=== PATIENT | female | born 1965 | race Caucasian/White ===

== ENCOUNTER 2016-06-13 11:20 | Emergency (ER) | payer OTHER ==
[~2016-06-13] VITALS: Ht 175.3 cm; Wt 105.0 kg
[~2016-06-13 11:20] MED LIST: ALBU8I INH; CHOLESTEROL MED PO; EXEN2VIA SC; GLUCTAB PO; MEDR4PAK3 PO; OMEP20TA39 PO; ZITH250T PO
[2016-06-13 11:23] VITALS: BP 124/79; PULSE 71; RESP 12; TEMP 98.1; O2SAT 98
--- NOTE | 2016-06-13 12:32 | PD ---
HPI Chief Complaint: Pain: Acute or Chronic Time Seen by Provider: 12:32 Travel History International Travel<30 days: No Contact w/Intl Traveler<30days: No Traveled to known affect area: No History of Present Illness HPI 50-year-old female presents to emergency department with complaint of right upper back pain that radiates down her right arm for approximately 1 week after weight lifting. She was lifting 25 pounds and doing her normal workout when she developed the pain in her right upper back. She has tried icy hot, ibuprofen, heating pad with no relief of symptoms. Reports muscle spasms in her right upper back and right arm. Denies fever, chills, nausea, vomiting. Denies paresthesias, loss of sensation, decreased range of motion, decreased strength to the affected extremity. Denies chest pain, shortness of breath, abdominal pain. History of diabetes and is on metformin. No known allergies. No other modifying factors or associated signs and symptoms. PFSH Past Medical History COPD: Yes Diabetes: Yes Diminished Hearing: No GERD: Yes Respiratory: Yes (BRONCHITIS) Immunizations Current: Yes Pneumonia: Yes Triglycerides - High: Yes ?: Not Menopausal: Yes : 1 Para: 1 Tubal Ligation: Yes Past Surgical History Cholecystectomy: Yes Social History Alcohol Use: Yes (RARELY) Tobacco Use: No Substance Use: No Allergies-Medications (Allergen,Severity, Reaction): Coded Allergies: No Known Allergies (Verified , 09/03/14) Reported Meds & Prescriptions Reported Meds & Active Scripts Active Medrol Dosepak (Methylprednisolone) 4 Mg Guy 4 Mg PO DIRECTED TAKE DIRECTED Zithromax Z-Guy (Azithromycin) 250 Mg Tab 250 Mg PO DIRECTED 500 MG (2 TABLETS) PO ON DAY 1, THEN 250 MG (1 TABLET) PO ON DAYS 2 TO 5. Reported [Cholesterol Med] 10 Mg PO DAILY Ventolin Hfa (Albuterol Sulfate) 8 Gm Aero 2 Puff INH Q4 * SHAKE WELL BEFORE USE * Bydureon (Exenatide) Inj 1 Vial SC WEEKLY Hm Omeprazole (Omeprazole) 20 Mg Tab 40 Mg PO DAILY Metformin Hcl (Metformin HCl) 500 Mg Tab 500 Mg PO BIDPC Review of Systems Except as stated in HPI: all other systems reviewed are Neg Physical Exam Narrative GENERAL: Well-nourished, well-developed female patient, in no acute distress SKIN: Warm and dry. HEAD: Atraumatic. Normocephalic. EYES: Pupils equal and round. No scleral icterus. No injection or drainage. ENT: Mucosa pink and moist. Airway patent. NECK: Supple. Trachea midline. No midline point tenderness on palpation of the cervical spine. Active rotation of the neck greater than 45 left and the right. Patient moving freely. CARDIOVASCULAR: Regular rate. RESPIRATORY: No accessory muscle use. GASTROINTESTINAL: Obese. MUSCULOSKELETAL: Right shoulder with full range of motion; greater than 45 abduction; right shoulder with no obvious deformities; joint stable. Shoulders equal. 5/5 strength. Right upper extremity supple and non-tense. 2+ radial pulse and sensory intact without erythema or edema. No obvious deformities. No clubbing. No cyanosis. No edema. BACK: No point tenderness on palpation of the thoracic spine. Reproducible tenderness to the right trapezius muscle over the scapular area. NEUROLOGICAL: Awake and alert. Oriented 3. No obvious cranial nerve deficits. Motor grossly within normal limits. Normal speech. PSYCHIATRIC: Appropriate mood and affect; insight and judgment normal. Data Data Last Documented VS Vital Signs Date Time Temp Pulse Resp B/P Pulse Ox O2 Delivery O2 Flow Rate FiO2 06/13/16 11:23 98.1 71 12 124/79 98 Room Air Orders Ketorolac Inj (Toradol Inj) (06/13/16 12:45) Orphenadrine Inj (Norflex Inj) (06/13/16 12:45) MDM Medical Decision Making Medical Screen Exam Complete: Yes Emergency Medical Condition: Yes Medical Record Reviewed: Yes Differential Diagnosis Muscle strain, muscle spasm, cervical radiculopathy Narrative Course 50-year-old female physical exam consistent with a right trapezius muscle strain and muscle spasms. Norflex and Toradol administered in the ER. Flexeril and naproxen prescribed for home. Patient is medically cleared and stable for discharge. Discussed reasons to return to the emergency department. Instructed patient to follow up with primary care provider. Patient agrees with treatment plan. The patients vital signs are stable and the patient is stable for outpatient follow-up and treatment. Patient discharged home, stable and in no acute distress. Diagnosis Primary Impression: Strain of right trapezius muscle Qualified Code: S46.811A - Strain of right trapezius muscle, initial encounter Additional Impression: Trapezius muscle spasm Referrals: Primary Care Physician Patient Instructions: General Instructions, Muscle Spasm (ED), Muscle Strain ( ED) Departure Forms: Tests/Procedures, Work Release Enter return to work date: Jun 15, 2016 Additional Instructions: Tylenol or ibuprofen as directed and as needed for pain Flexeril as prescribed and as needed for muscle spasms Heating pad and/or ice to affected area to reduce pain Avoid aggravating activities; increase activity as tolerated Follow-up with primary care provider Return to emergency department immediately with worsening of symptoms Med/Other Pt SpecificInfo: Prescription(s) given Scripts Naproxen 500 Mg [id number] Mg PO BID PRN (PAIN SCALE 1 TO 10) 7 Days Ref 0 Prov:Tete Kim 06/13/16 Cyclobenzaprine (Flexeril)10 Mg Tab10 Mg PO TID PRN (MUSCLE SPASM) #30 TAB Ref 0 Prov:Tete Kim 06/13/16 Disposition: 01 DISCHARGE HOME Condition: Stable Tete Kim Jun 13, 2016 12:32
[2016-06-13] MEDS ORDERED: CYCL1TAB29 PO (12:43)
[2016-06-13] MEDS ORDERED: NAPR500T PO (12:43)
[2016-06-13] MEDS ORDERED: ORPHENADRINE INJ 60 MG/2 ML AMP IM ONE (12:45)
[2016-06-13] MEDS ORDERED: KETOROLAC TROMETHAMINE 60 MG/2 ML (IM) VIAL IM ONE (12:45)
== END 2016-06-13 12:59 | disposition home or self-care (01) ==
LOC: NEPB 11:20
DX: S46.811A Strain of other muscles, fascia and tendons at shoulder and upper arm level, right arm, initial encounter (principal); M62.838 Other muscle spasm; M62.830 Muscle spasm of back; E11.9 Type 2 diabetes mellitus without complications; E78.1 Pure hyperglyceridemia; Z79.84 Long term (current) use of oral hypoglycemic drugs; Z87.09 Personal history of other diseases of the respiratory system; Z87.19 Personal history of other diseases of the digestive system; Z87.01 Personal history of pneumonia (recurrent)
CPT/HCPCS: 96372; 99283; J1885; J2360

== ENCOUNTER 2016-09-07 06:59 | Emergency (ER) | payer OTHER ==
[~2016-09-07] VITALS: Ht 177.8 cm; Wt 102.0 kg
[~2016-09-07 06:59] MED LIST changes: +CYCL1TAB29 PO; +NAPR500T PO
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
[2016-09-07 07:11] VITALS: BP 143/78; PULSE 74; RESP 16; TEMP 98.2; O2SAT 99
[2016-09-07] MEDS ORDERED: CYCL5TAB PO (07:13)
[2016-09-07] MEDS ORDERED: IBUP800T23 PO (07:13)
[2016-09-07] MEDS ORDERED: KETOROLAC TROMETHAMINE 60 MG/2 ML (IM) VIAL IM ONE (07:30)
[2016-09-07] MEDS ORDERED: ORPHENADRINE INJ 60 MG/2 ML AMP IM ONE (07:30)
== END 2016-09-07 07:44 | disposition home or self-care (01) ==
LOC: NEPK 06:59
DX: S16.1XXA Strain of muscle, fascia and tendon at neck level, initial encounter (principal); S46.912A Strain of unspecified muscle, fascia and tendon at shoulder and upper arm level, left arm, initial encounter; S46.911A Strain of unspecified muscle, fascia and tendon at shoulder and upper arm level, right arm, initial encounter; V43.52XA Car driver injured in collision with other type car in traffic accident, initial encounter; Y93.89 Activity, other specified; Y92.410 Unspecified street and highway as the place of occurrence of the external cause; E11.9 Type 2 diabetes mellitus without complications; J44.9 Chronic obstructive pulmonary disease, unspecified
CPT/HCPCS: 96372; 99283; J1885; J2360

== ENCOUNTER 2018-03-01 12:54 | Observation (INO) ==
[2018-03-01] MEDS ORDERED: Morphine Inj 4 MG/ML Vial IV.PUSH ONE (15:29)
[2018-03-01] MEDS ORDERED: Sod Chloride 0.9% Inj 1,000 ML IV.CONT SCH (15:30)
--- NOTE | 2018-03-01 16:15 | ED ---
HPI General Chief Complaint: Abdominal Pain Stated Complaint: side pain Time Seen by Provider: 03/01/18 15:23 Source: patient Mode of arrival: ambulatory Limitations: no limitations History of Present Illness HPI narrative: 52-year-old female complains of right lower quadrant abdominal pain for about 1 day. Pain is worse with range of motion twisting bending over and walking. Onset somewhat gradual with continuous worsening. Appetite preserved however patient reports nausea. No vomiting. Patient reports diarrhea over the last few days none today. No fever. No similar prior episodes. MD complaint: Reports abdominal pain Onset (ago): hour(s) (12) Pain Consistency: constant Location: Reports RLQ Severity: moderate Related Data Home Medications Medication Instructions Recorded Confirmed metformin 500 mg PO BID 03/01/18 03/01/18 omeprazole magnesium [Prilosec OTC] mg PO DAILY 03/01/18 Allergies Allergy/AdvReac Type Severity Reaction Status Date / Time No Known Allergies Allergy Verified 03/01/18 15:29 Review of Systems ROS: all other systems reviewed are negative [facility] Medical History Medical History COPD (chronic obstructive pulmonary disease) (Acute) Diabetes (Acute) Hypercholesterolemia (Acute) Kidney stone (Acute) Tubal ligation status (Acute) Surgical History Surgical History History of cholecystectomy (Acute) Social History Social History Substance History: No History of Abuse Smoking Status: Never smoker How Often Do You Have a Drink Containing Alcohol: Monthly or less Recent Travel in [facility] within the Last 8 Weeks: No Recent Out of Country Travel within the Last 8 Weeks: No Immunization History Tetanus Immunization: >5 Years Exam Narrative Exam Narrative: GENERAL: 52-year-old female well-nourished well-developed pleasant no acute distress SKIN: Focused skin assessment warm/dry. HEAD: Atraumatic. Normocephalic. EYES: Pupils equal and round. No scleral icterus. No injection or drainage. ENT: No nasal bleeding or discharge. Mucous membranes pink and moist. NECK: Trachea midline. No JVD. CARDIOVASCULAR: Regular rate and rhythm. No murmur appreciated. RESPIRATORY: No accessory muscle use. Clear to auscultation. Breath sounds equal bilaterally. GASTROINTESTINAL: Soft. No flank tenderness. Tenderness palpation in the right lower quadrant. MUSCULOSKELETAL: No obvious deformities. No clubbing. No cyanosis. No edema. NEUROLOGICAL: Awake and alert. No obvious cranial nerve deficits. Motor grossly within normal limits. Normal speech. PSYCHIATRIC: Appropriate mood and affect; insight and judgment normal. Course Initial Documented Vital Signs Temperature 97.8 F 03/01/18 12:56 Pulse Rate 85 03/01/18 12:56 Respiratory Rate 18 03/01/18 12:56 Blood Pressure 168/80 H 03/01/18 12:56 Pulse Oximetry 99 03/01/18 12:56 Last Documented Vital Signs Temperature 97.8 F 03/01/18 12:56 Pulse Rate 77 03/01/18 17:45 Respiratory Rate 17 03/01/18 17:45 Blood Pressure 138/71 03/01/18 17:45 Pulse Oximetry 99 03/01/18 17:45 Medical Decision Making MDM Narrative Medical decision making narrative: Patient arrives with right lower quadrant pain leukocytosis and CT findings consistent with acute appendicitis. No perforation. Abdomen soft though tender in the right lower quadrant. Discussed with Dr. Grewal in general surgery. IVF, Cefoxitin w plan for OR. Patient found resting comfortably at time of reassessment just prior to admission and was updated with the diagnosis and plan and was agreeable with it Medical Screen Exam Complete: Yes Emergency Medical Condition: Yes Differential Diagnosis Differential Diagnosis: Constipation, Gastritis, Acute Cholecystitis, Biliary Colic, Pancreatitis, MALAGON, Hepatitis, Bowel Obstruction, Cystitis, Mesenteric Ischemia, AAA, Appendicitis, Renal Stone/Hydronephrosis, GERD, perforated viscous Lab Data Lab results reviewed: Yes I reviewed the patient's lab results. Lab results narrative: Leukocytosis noted LFTs and urine normal Result diagrams: 03/01/18 15:45 03/01/18 15:45 Lab Results 03/01/18 03/01/18 03/01/18 Range/Units 15:40 15:45 15:45 WBC 17.8 H (4.0-11.0) th/mm3 RBC 4.93 (4.00-5.30) mil/mm3 Hgb 13.9 (11.6-15.3) gm/dL Hct 40.0 (35.0-46.0) % MCV 81.2 (80.0-100.0) fL MCH 28.2 (27.0-34.0) pg MCHC 34.8 (32.0-36.0) % RDW 14.4 (11.6-17.2) % Plt Count 276 (150-450) th/mm3 MPV 8.1 (7.0-11.0) fL Neut % (Auto) 84.6 H (16.0-70.0) % Lymph % (Auto) 8.9 L (9.0-44.0) % [place] % (Auto) 6.2 (0.0-8.0) % Eos % (Auto) 0.2 (0.0-4.0) % Baso % (Auto) 0.1 (0.0-2.0) % Neut # (Auto) 15.1 H (1.8-7.7) th/mm3 Lymph # (Auto) 1.6 (1.0-4.8) th/mm3 [place] # (Auto) 1.1 H (0.0-0.9) th/mm3 Eos # (Auto) 0.0 (0.0-0.4) th/mm3 Baso # (Auto) 0.0 (0.0-0.2) th/mm3 WBC Differential . Differential Comment Auto diff final Sodium 141 (136-145) meq/L Potassium 3.8 (3.5-5.1) meq/L Chloride 102 (98-107) meq/L Carbon Dioxide 29.7 (21.0-32.0) meq/L Anion Gap 9 (5-15) meq/L BUN 15 (7-18) mg/dL Creatinine 0.96 (0.50-1.00) mg/dL Estimated GFR 61 L (>89) mL/min Random Glucose 149 H (74-106) mg/dL Calcium 8.9 (8.5-10.1) mg/dL Total Bilirubin 0.6 (0.2-1.0) mg/dL AST 22 (15-37) U/L ALT 39 (10-53) U/L Alkaline Phosphatase 85 (45-117) U/L Total Protein 8.1 (6.4-8.2) g/dL Albumin 3.9 (3.4-5.0) g/dL Lipase 145 (73-393) U/L Urine Color Yellow (Yellw/Straw) Urine Clarity Cloudy H (Clear) Urine pH 7.0 (5.0-8.5) Ur Specific [place] 1.020 (1.002-1.035) Urine Protein Negative (Neg-Trace) mg/dL Urine Glucose (UA) Negative (Negative) mg/dL Urine Ketones Negative (Negative) mg/dL Urine Occult Blood Negative (Negative) Urine Nitrate Negative (Negative) Urine Bilirubin Negative (Negative) Urine Urobilinogen 2.0 H (Less than 2) mg/dL Ur Leukocyte Esterase Negative (Negative) Ur Squamous Epith Cells 7 (0-5) /hpf Amorphous Sediment Rare H (None) /hpf Micro UA Comment Culture not ind Ur Microscopic Review Not Reportable Urine Culture Comments Culture not ind Imaging Data Radiologist's impression: Abdomen/Pelvis CT 03/01/18 15:29 CONCLUSION: 1. Tubular structure extending off the cecum measuring up to 1.2 cm in diameter with mild apparent adjacent inflammatory change. This could represent early appendicitis. 2. Anterior abdominal wall hernias the upper hernia contains omental fat and small amount of fluid density. Discharge Plan Discharge Disposition Patient Disposition: 30 Still Patient Physicians Team ED Provider: Kyle Collier Primary Care Provider: Jerome Wallace Attending Provider: Jn Grewal Discharge Interventions Interventions: ED Discharge Assessment Last Done: 03/01/18 18:30 Vital Signs Last Done: 03/01/18 16:49 Status ED Status: Admitted Observation Patient
[2018-03-01 16:21] LABS: Baso % (Auto) 0.1 % (0.0-2.0); Eos % (Auto) 0.2 % (0.0-4.0); Hemoglobin 13.9 gm/dL (11.6-15.3); Lymph # (Auto) 1.6 th/mm3 (1.0-4.8); Lymph % (Auto) 8.9 % (9.0-44.0); Mean Corpuscular HGB Conc 34.8 % (32.0-36.0); Mean Corpuscular Hemoglobin 28.2 pg (27.0-34.0); Mean Corpuscular Volume 81.2 fL (80.0-100.0); Mean Platelet Volume 8.1 fL (7.0-11.0); Mono # (Auto) 1.1 th/mm3 (0.0-0.9); Mono % (Auto) 6.2 % (0.0-8.0); Neut # (Auto) 15.1 th/mm3 (1.8-7.7); Neut % (Auto) 84.6 % (16.0-70.0); Platelet Count 276 th/mm3 (150-450); Red Blood Count 4.93 mil/mm3 (4.00-5.30); Red Cell Distribution Width 14.4 % (11.6-17.2); White Blood Count 17.8 th/mm3 (4.0-11.0)
[2018-03-01 16:27] LABS: Amorphous Sediment,Urine Rare /hpf; Bilirubin,Urine Negative (Negative); Clarity,Urine Cloudy (Clear); Color,Urine Yellow (Yellw/Straw); Glucose,Urine (UA) Negative (Negative); Leukocyte Esterase,Urine Negative (Negative); Nitrite,Urine Negative (Negative); Squamous Epithelial Cell,Urine 7 /hpf (0-5)
[2018-03-01 16:44] LABS: Alanine Aminotransferase 39 U/L (10-53); Albumin 3.9 g/dL (3.4-5.0); Anion Gap 9 meq/L (5-15); Aspartate Aminotransferase 22 U/L (15-37); Blood Urea Nitrogen 15 mg/dL (7-18); Calcium 8.9 mg/dL (8.5-10.1); Carbon Dioxide 29.7 meq/L (21.0-32.0); Chloride 102 meq/L (98-107); Glomerular Filtration Rate 61 mL/min (>89); Glucose,Random 149 mg/dL (74-106); Lipase 145 U/L (73-393); Potassium 3.8 meq/L (3.5-5.1); Sodium 141 meq/L (136-145)
[2018-03-01 16:46] LABS: Alkaline Phosphatase 85 U/L (45-117); Total Protein 8.1 g/dL (6.4-8.2)
--- NOTE | 2018-03-01 17:35 | CT ---
EXAM DATE: 03/01/2018 3:56 PM EDT AGE/SEX: 52 years / Female INDICATIONS: Abdominal pain for a couple days. CLINICAL DATA: This is the patient's initial encounter. Patient reports that signs and symptoms have been present for 2 days and indicates a pain score of 6/10. MEDICAL/SURGICAL HISTORY: Diabetes. Chronic obstructive pulmonary disease. Renal calculi. Cho lecystectomy. Tubal ligation. ORAL CONTRAST: No oral contrast ingested. RADIATION DOSE: 14.26 CTDI (mGy) COMPARISON: No prior exams available for comparison. TECHNIQUE: Multiple contiguous axial images were obtained through the abdomen and pelvis following b olus infusion of 98 ml Omnipaque 350 (iohexol) nonionic water-soluble contrast as a single exam dos e. No oral contrast ingested. Using automated exposure control and adjustment of the mA and/or kV ac cording to patient size, radiation dose was kept as low as reasonably achievable to obtain optimal di agnostic quality images. DICOM format image data is available electronically for review and comparis on. FINDINGS: Lower Lungs: The visualized lower lungs are clear. Liver: The liver has a homogeneous density without space-occupying lesion. There is no dilation of th e biliary tree. The patient is status post cholecystectomy. There is mild hepatic steatosis. Spleen: Homogeneous density without enlargement. Pancreas: Unremarkable without mass or calcification. Kidneys: Normal in size and shape. No evidence of mass or hydronephrosis. Adrenal Glands: Unremarkable. Aorta: The aorta and proximal iliac vessels are grossly unremarkable without aneurysmal dilation. Bowel/Mesentery: No oral contrast was given limiting the sensitivity of the exam. There is a tubular structure extending off the cecum measuring up to 1.2 cm in diameter with mild apparent adjacent infl ammatory change. There are no abnormal calcifications. The cecum and sigmoid colon have a normal conf iguration. Abdominal Wall: Upper anterior abdominal wall hernia containing omental fat and small area of densit y. There is a small periumbilical hernia as well. Retroperitoneum: No evidence of adenopathy in the retrocrural, para-aortic, or deep pelvic regions. Bladder: Contours are smooth. Reproductive Organs: No abnormal masses or calcifications seen. Inguinal: The inguinal region is unremarkable without evidence of adenopathy. Bony Structures: Degenerative change and scoliosis are noted. CONCLUSION: 1. Tubular structure extending off the cecum measuring up to 1.2 cm in diameter with mild apparent a djacent inflammatory change. This could represent early appendicitis. 2. Anterior abdominal wall hernias the upper hernia contains omental fat and small amount of fluid d ensity. Electronically signed by: Lucas Park MD 03/01/2018 5:33 PM EDT
[2018-03-01] MEDS ORDERED: Sodium Chloride 0.9% 2 ML Flush PRN IV.FLUSH (18:15)
[2018-03-01] MEDS ORDERED: cefOXitin Inj 2 GM in Sodium Chlor 0.9% Inj 100 ML IV.SIG ONE (18:30)
[2018-03-01] MEDS ORDERED: Sodium Chloride 0.9% 2 ML Flush BID IV.FLUSH SCH (21:00)
[2018-03-01] MEDS ORDERED: Morphine Inj 4 MG/ML Vial IV.PUSH PRN (22:03)
--- NOTE | 2018-03-01 22:05 | P.CONGS ---
HPI Gen Surgery Consult Note Consult date: 03/01/18 PMFSH - History History Provided By: Patient - Medical History Medical History: Medical History (Last Updated 03/01/18 @ 15:32 by Hina Beach) COPD (chronic obstructive pulmonary disease) Diabetes Hypercholesterolemia Kidney stone Tubal ligation status - Surgical History Surgical History: Surgical History (Last Updated 03/01/18 @ 15:32 by Hina Beach) History of cholecystectomy - Tobacco History Smoking Status: Never smoker - Alcohol History How Often Do You Have a Drink Containing Alcohol: Monthly or less - Substance Use History Substance History: No History of Abuse - Travel History Recent Travel in the [place] Within the Last 8 Weeks: No Recent Travel Out of the Country Within the Last 8 Weeks: No - Immunization History Tetanus Immunization: >5 Years Medications and Allergies Active Medications: Active Medications Sodium Chloride (Ns Inj) 1,000 mls @ 125 mls/hr IV.CONT .Q8H ARLINE Stop: 03/01/18 23:29 Last Admin: 03/01/18 15:46 Dose: 125 mls/hr Lactated Ringer's (Lr 1000 Ml Inj) 1,000 mls @ 125 mls/hr IV.CONT .Q8H ARLINE Piperacillin/Tazobactam/Dextrose (Zosyn 3.375 Gm Premix) 50 mls @ 100 mls/hr IV.SIG Q6H ARLINE Morphine Sulfate (Morphine Inj) 4 mg IV.PUSH Q3H PRN PRN Reason: Pain3-10 Ondansetron HCl (Zofran Inj) 4 mg IV.PUSH Q6H PRN PRN Reason: NAUSEA OR VOMITING Sodium Chloride (Ns Flush) 2 ml IV.FLUSH BID ARLINE Sodium Chloride (Ns Flush) 2 ml IV.FLUSH PRN PRN PRN Reason: FLUSH AFTER USING IV ACCESS Sodium Chloride (Ns Flush) 2 ml IV.FLUSH BID ARLINE Sodium Chloride (Ns Flush) 2 ml IV.FLUSH PRN PRN PRN Reason: FLUSH AFTER USING IV ACCESS Allergies Allergy/AdvReac Type Severity Reaction Status Date / Time No Known Allergies Allergy Verified 03/01/18 15:29 Home Medications Medication Instructions Recorded Confirmed Type metformin 500 mg PO BID 03/01/18 03/01/18 History omeprazole magnesium [Prilosec OTC] mg PO DAILY 03/01/18 History Exam Vital signs: Vital Signs 03/01/18 12:56 03/01/18 15:31 03/01/18 15:33 Temperature 97.8 F Pulse Rate 85 82 80 Respiratory Rate 18 21 Blood Pressure 168/80 H 160/88 H Pulse Oximetry 99 99 03/01/18 16:12 03/01/18 16:49 03/01/18 17:45 Temperature Pulse Rate 77 77 Respiratory Rate 16 16 17 Blood Pressure 133/75 138/71 Pulse Oximetry 99 99 Intake & Output 03/01/18 03/01/18 03/02/18 06:59 18:59 06:59 Weight 108.862 kg Results - Labs 03/01/18 15:45 03/01/18 15:45 Laboratory Results - last 24 hr 03/01/18 03/01/18 03/01/18 15:40 15:45 15:45 WBC 17.8 H RBC 4.93 Hgb 13.9 Hct 40.0 MCV 81.2 MCH 28.2 MCHC 34.8 RDW 14.4 Plt Count 276 MPV 8.1 Neut % (Auto) 84.6 H Lymph % (Auto) 8.9 L [place] % (Auto) 6.2 Eos % (Auto) 0.2 Baso % (Auto) 0.1 Neut # (Auto) 15.1 H Lymph # (Auto) 1.6 [place] # (Auto) 1.1 H Eos # (Auto) 0.0 Baso # (Auto) 0.0 WBC Differential . Differential Comment Auto diff final Sodium 141 Potassium 3.8 Chloride 102 Carbon Dioxide 29.7 Anion Gap 9 BUN 15 Creatinine 0.96 Estimated GFR 61 L Random Glucose 149 H Calcium 8.9 Total Bilirubin 0.6 AST 22 ALT 39 Alkaline Phosphatase 85 Total Protein 8.1 Albumin 3.9 Lipase 145 Urine Color Yellow Urine Clarity Cloudy H Urine pH 7.0 Ur Specific [place] 1.020 Urine Protein Negative Urine Glucose (UA) Negative Urine Ketones Negative Urine Occult Blood Negative Urine Nitrate Negative Urine Bilirubin Negative Urine Urobilinogen 2.0 H Ur Leukocyte Esterase Negative Ur Squamous Epith Cells 7 Amorphous Sediment Rare H Micro UA Comment Culture not ind Ur Microscopic Review Not Reportable Urine Culture Comments Culture not ind - Imaging Imaging: ITS Impressions Abdomen/Pelvis CT 03/01/18 15:29 CONCLUSION: 1. Tubular structure extending off the cecum measuring up to 1.2 cm in diameter with mild apparent adjacent inflammatory change. This could represent early appendicitis. 2. Anterior abdominal wall hernias the upper hernia contains omental fat and small amount of fluid density. Assessment and Plan - Assessment (1) Acute appendicitis Code(s): K35.80 - Unspecified acute appendicitis Status: Acute
[2018-03-01] MEDS ORDERED: Metoprolol Tartrate 25 MG Tablet PO ONE (22:25)
[2018-03-01] MEDS ORDERED: Chlorhexidine Gluconate 2% 1 Pack (2 Cloths) TOPICAL ONE (22:25)
[2018-03-01] MEDS ORDERED: Bupivacaine/Epinephrine 0.5% Inj 50 ML Vial ONE (22:32)
[2018-03-01] MEDS ORDERED: Sodium Chlor 0.9% Inj 500 ML IV.SIG SCH (23:00)
[2018-03-02] MEDS ORDERED: Sugammadex Inj 200 MG/2 ML Vial IV.PUSH ONE (00:44)
[2018-03-02] MEDS ORDERED: Piperacil/Tazo 3.375 GM Premix 50 ML IV.SIG SCH (01:00)
--- NOTE | 2018-03-02 02:01 | P.HPGS ---
History of Present Illness Service: General Surgery Primary Care Physician: Jerome Wallace Chief Complaint: Abdominal pain History of Present Illness: The patient is a 52 yo F who developed severe RLQ abdominal pain early this am, as well as milder generalized abdominal pain. She went to work and the pain progressively worsened. After work she immediately presented to the ED where she was noted to have leukocytosis and CT a/p showing likely acute appendicitis. - Diagnosis (1) Acute appendicitis Review of Systems All other systems reviewed negative except as stated in HPI PMFSH - History History Provided By: Patient - Medical History Medical History: Medical History (Last Updated 03/01/18 @ 15:32 by Hina Beach) COPD (chronic obstructive pulmonary disease) Diabetes Hypercholesterolemia Kidney stone Tubal ligation status - Surgical History Surgical History: Surgical History (Last Updated 03/01/18 @ 15:32 by Hina Beach) History of cholecystectomy - Tobacco History Second Hand Smoke Exposure: No Tobacco Use In Past 30 Days: No Smoking Status: Never smoker - Alcohol History How Often Do You Have a Drink Containing Alcohol: 2 to 4 times a month - Substance Use History Substance History: No History of Abuse - Travel History Recent Travel in the [place] Within the Last 8 Weeks: No Recent Travel Out of the Country Within the Last 8 Weeks: No - Immunization History Tetanus Immunization: >5 Years Medications and Allergies Active Medications: Active Medications Lactated Ringer's (Lr 1000 Ml Inj) 1,000 mls @ 125 mls/hr IV.CONT .Q8H ARLINE Last Admin: 03/01/18 23:59 Dose: 125 mls/hr Piperacillin/Tazobactam/Dextrose (Zosyn 3.375 Gm Premix) 50 mls @ 100 mls/hr IV.SIG Q6H ARLINE Lactated Ringer's (Lr 1000 Ml Inj) 1,000 mls @ 30 mls/hr IV.SIG .Q24H ARLINE Stop: 03/02/18 22:29 Sodium Chloride (Ns Inj) 500 mls @ 30 mls/hr IV.SIG .Q10H ARLINE Morphine Sulfate (Morphine Inj) 4 mg IV.PUSH Q3H PRN PRN Reason: Pain3-10 Ondansetron HCl (Zofran Inj) 4 mg IV.PUSH Q6H PRN PRN Reason: NAUSEA OR VOMITING Sodium Chloride (Ns Flush) 2 ml IV.FLUSH BID ARLINE Sodium Chloride (Ns Flush) 2 ml IV.FLUSH PRN PRN PRN Reason: FLUSH AFTER USING IV ACCESS Allergies Allergy/AdvReac Type Severity Reaction Status Date / Time No Known Allergies Allergy Verified 03/01/18 15:29 Home Medications Medication Instructions Recorded Confirmed Type metformin 500 mg PO BID 03/01/18 03/01/18 History omeprazole magnesium [Prilosec OTC] mg PO DAILY 03/01/18 History Exam Vital signs: Vital Signs 03/01/18 12:56 03/01/18 15:31 03/01/18 15:33 Temperature 97.8 F Pulse Rate 85 82 80 Respiratory Rate 18 21 Blood Pressure 168/80 H 160/88 H Pulse Oximetry 99 99 03/01/18 16:12 03/01/18 16:49 03/01/18 17:45 Temperature Pulse Rate 77 77 Respiratory Rate 16 16 17 Blood Pressure 133/75 138/71 Pulse Oximetry 99 99 03/02/18 01:54 Temperature 98.0 F Pulse Rate 68 Respiratory Rate 14 Blood Pressure 120/58 L Pulse Oximetry 96 Intake & Output 03/01/18 03/01/18 03/02/18 06:59 18:59 06:59 Intake Total 100 / 100 Balance 100 / 100 Weight 108.862 kg Intake: IV 100 / 100 Mefoxin Inj 2 GM In NS Inj 100 100 / 100 ML @ 200 mls/hr IV.SIG ONCE ONE Rx#:[id number] Narrative: GENERAL: Awake and alert. No acute distress. Cooperative. HEAD: Normocephalic. Atraumatic. EYES: Pupils equal round and reactive to light bilaterally. No scleral icterus. ENT: Moist oral mucosa. NECK: Trachea midline. CHEST: Nonlabored breathing. No respiratory distress. CARDIOVASCULAR: Regular rate and rhythm. ABDOMEN: Soft, severe tenderness in the right lower quadrant at McBurney's point. No rebound or guarding. Umbilical hernia nontender soft incarcerated with preperitoneal fat. EXTREMITIES: No cyanosis or edema. SKIN: Warm, dry, nonjaundiced. Results - Labs 03/01/18 15:45 03/01/18 15:45 Laboratory Results - last 24 hr 03/01/18 03/01/18 03/01/18 15:40 15:45 15:45 WBC 17.8 H RBC 4.93 Hgb 13.9 Hct 40.0 MCV 81.2 MCH 28.2 MCHC 34.8 RDW 14.4 Plt Count 276 MPV 8.1 Neut % (Auto) 84.6 H Lymph % (Auto) 8.9 L [place] % (Auto) 6.2 Eos % (Auto) 0.2 Baso % (Auto) 0.1 Neut # (Auto) 15.1 H Lymph # (Auto) 1.6 [place] # (Auto) 1.1 H Eos # (Auto) 0.0 Baso # (Auto) 0.0 WBC Differential . Differential Comment Auto diff final Sodium 141 Potassium 3.8 Chloride 102 Carbon Dioxide 29.7 Anion Gap 9 BUN 15 Creatinine 0.96 Estimated GFR 61 L Random Glucose 149 H Calcium 8.9 Total Bilirubin 0.6 AST 22 ALT 39 Alkaline Phosphatase 85 Total Protein 8.1 Albumin 3.9 Lipase 145 Urine Color Yellow Urine Clarity Cloudy H Urine pH 7.0 Ur Specific [place] 1.020 Urine Protein Negative Urine Glucose (UA) Negative Urine Ketones Negative Urine Occult Blood Negative Urine Nitrate Negative Urine Bilirubin Negative Urine Urobilinogen 2.0 H Ur Leukocyte Esterase Negative Ur Squamous Epith Cells 7 Amorphous Sediment Rare H Micro UA Comment Culture not ind Ur Microscopic Review Not Reportable Urine Culture Comments Culture not ind - Imaging Imaging: ITS Impressions Abdomen/Pelvis CT 03/01/18 15:29 CONCLUSION: 1. Tubular structure extending off the cecum measuring up to 1.2 cm in diameter with mild apparent adjacent inflammatory change. This could represent early appendicitis. 2. Anterior abdominal wall hernias the upper hernia contains omental fat and small amount of fluid density. CT scan - abdomen: report reviewed, image reviewed CT scan - pelvis: report reviewed, image reviewed Caprini VTE Risk Assessment Caprini VTE Risk Assessment: No/Low Risk (score <= 1) Caprini Risk Assessment Model: Point Value = 1 Point Value = 2 Point Value = 3 Point Value = 5 Age 41-60 Minor surgery BMI > 25 kg/m2 Swollen legs Varicose veins or History of unexplained or recurrent spontaneous Oral contraceptives or hormone replacement Sepsis (< 1 month) Serious lung disease, including pneumonia (< 1 month) Abnormal pulmonary function Acute myocardial infarction Congestive heart failure (< 1 month) History of inflammatory bowel disease Medical patient at bed rest Age 61-74 Arthroscopic surgery Major open surgery (> 45 min) Laparoscopic surgery (> 45 min) Malignancy Confined to bed (> 72 hours) Immobilizing plaster cast Central venous access Age >= 75 History of VTE Family history of VTE Factor V Leiden Prothrombin [id number] Lupus anticoagulant Anticardiolipin antibodies Elevated serum homocysteine Heparin-induced thrombocytopenia Other congenital or acquired thrombophilia Stroke (< 1 month) Elective arthroplasty Hip, pelvis, or leg fracture Acute spinal cord injury (< 1 month) Prophylaxis Regimen: Total Risk Factor Score Risk Level Prophylaxis Regimen 0-1 Low Early ambulation 2 Moderate Order ONE of the following: *Sequential Compression Device (SCD) *Heparin 5000 units SQ BID 3-4 Higher Order ONE of the following medications: *Heparin 5000 units SQ TID *Enoxaparin/Lovenox 40 mg SQ daily (WT < 150 kg, CrCl > 30 mL/min) *Enoxaparin/Lovenox 30 mg SQ daily (WT < 150 kg, CrCl > 10-29 mL/min) *Enoxaparin/Lovenox 30 mg SQ BID (WT < 150 kg, CrCl > 30 mL/min) AND/OR *Sequential Compression Device (SCD) 5 or more Highest Order ONE of the following medications: *Heparin 5000 units SQ TID (Preferred with Epidurals) *Enoxaparin/Lovenox 40 mg SQ daily (WT < 150 kg, CrCl > 30 mL/min) *Enoxaparin/Lovenox 30 mg SQ daily (WT < 150 kg, CrCl > 10-29 mL/min) *Enoxaparin/Lovenox 30 mg SQ BID (WT < 150 kg, CrCl > 30 mL/min) AND *Sequential Compression Device (SCD) Assessment and Plan - Assessment (1) Acute appendicitis Code(s): K35.80 - Unspecified acute appendicitis Status: Acute - Plan Recommend to proceed to the operating room for laparoscopic possible open appendectomy. Discussed in detail with the patient she understands and desires to proceed. H&P: Quality - VTE Deep Vein Thrombosis/Pulmonary Embolism Present on Admission: No
[2018-03-02] MEDS ORDERED: Succinylcholine Inj 100 MG/5 ML Syringe IV.PUSH ONE (02:31)
[2018-03-02] MEDS ORDERED: Glycopyrrolate Inj 1 MG/5 ML Syringe IV.PUSH ONE (02:31)
[2018-03-02] MEDS ORDERED: Ketorolac 10 MG Tablet PO PRN (03:20)
--- NOTE | 2018-03-02 03:24 | P.OP ---
- Preoperative Diagnosis (1) Acute appendicitis - Postoperative Diagnosis (1) Acute appendicitis Date of procedure: 03/02/18 Procedure: Laparoscopic appendectomy Anesthesia: SOFÍA Surgeon: Jn Grewal MD Supervisor Plastics: Den CHURCH Estimated blood loss (mL): 5 Pathology: other (appendix) Operation and Findings: EBL: 5 cc Complications: None apparent Operative findings: Appendix is distended and inflamed in the distal portion. No perforation or gangrene. Procedure in detail: The patient was taken to the operating room placed in the supine position with left arm tucked. General endotracheal anesthesia was induced and the abdomen was prepped and draped in usual sterile fashion. Surgical timeout was performed to verify correct patient procedure and site. Perioperative antibiotics were administered as necessary. Local anesthetic was injected in the skin and subcutaneous tissue superior to the umbilicus and a 5 mm incision made. Using the 5 mm Optiview trocar with laparoscope the abdomen was directly entered. The abdomen was then insufflated to 15 mmHg with CO2 gas which the patient tolerated well. The patient was then placed in Trendelenburg position and turned slightly to the left. A 12 mm port was placed under laparoscopic visualization in the left lower abdomen and another 5 mm port in the suprapubic area. Attention was turned to the right lower quadrant. The appendix was dilated and inflamed. The mesoappendix was taken down with the Harmonic scalpel. Two #1 PDS Endoloops were placed at the base the appendix and the appendix transected with Harmonic scalpel. It was then removed using an Endo Catch bag. The appendiceal stump was intact with no leakage. There was no purulent fluid identified in the abdomen. The abdomen was allowed to desufflate. The fascia at the 12 mm port site was closed with a 0 Vicryl suture. Skin closed with subcuticular Monocryl as well as Dermabond. The patient tolerated the procedure well was extubated and taken to PACU in stable condition.
[2018-03-02] MEDS ORDERED: *Meperidine Inj 25 MG/ML Vial PERIprocedural Use ONLY ONE (03:35)
[2018-03-02] MEDS ORDERED: fentaNYL Citrate Inj 100 MCG/2 ML Ampul ONE (03:42)
[2018-03-02] MEDS ORDERED: *morphine SULFATE 4 MG/ML PERIprocedure ONLY ONE (03:51)
--- NOTE | 2018-03-02 12:22 | P.PNGS ---
Subjective Interval history: Tolerating diet. Pain controlled. Physical Exam Vital signs: Vital Signs 03/01/18 12:56 03/01/18 15:31 03/01/18 15:33 Temperature 97.8 F Pulse Rate 85 82 80 Respiratory Rate 18 21 Blood Pressure 168/80 H 160/88 H Pulse Oximetry 99 99 03/01/18 16:12 03/01/18 16:49 03/01/18 17:45 Temperature Pulse Rate 77 77 Respiratory Rate 16 16 17 Blood Pressure 133/75 138/71 Pulse Oximetry 99 99 03/02/18 01:54 03/02/18 03:32 03/02/18 03:35 Temperature 98.0 F 98.0 F Pulse Rate 68 79 93 H Respiratory Rate 14 14 24 Blood Pressure 120/58 L 130/63 143/67 H Pulse Oximetry 96 100 100 03/02/18 03:45 03/02/18 04:00 03/02/18 04:02 Temperature Pulse Rate 76 73 Respiratory Rate 15 12 Blood Pressure 120/58 L 118/57 L Pulse Oximetry 100 99 99 03/02/18 04:15 03/02/18 04:30 03/02/18 05:00 Temperature 98.4 F 98.2 F Pulse Rate 76 75 83 Respiratory Rate 11 L 15 18 Blood Pressure 116/59 L 111/55 L 109/54 L Pulse Oximetry 97 96 93 L 03/02/18 08:00 03/02/18 11:40 03/02/18 12:00 Temperature 97.8 F 97.6 F Pulse Rate 74 76 Respiratory Rate 16 18 16 Blood Pressure 106/55 L 121/63 Pulse Oximetry 92 L 94 L Intake & Output 03/01/18 03/02/18 03/02/18 18:59 06:59 18:59 Intake Total 1200 / 1200 Output Total 0 / 0 Balance 1200 / 1200 Weight 108.862 kg 108.8 kg Intake: IV 1100 / 1100 LR 1000 mL Inj 1,000 ML @ 125 1000 / 1000 mls/hr IV.CONT .Q8H ARLINE Rx#: [id number] Mefoxin Inj 2 GM In NS Inj 100 100 / 100 ML @ 200 mls/hr IV.SIG ONCE ONE Rx#:[id number] Oral 0 / 0 Anesthesia Amount 100 / 100 Output: Urine 0 / 0 Other: Date of Last Bowel Movement 03/01/18 Weight On Admission 108.862 kg Narrative: No distress Abd soft, post op mild ttp, inc c/d/i Results - Labs 03/01/18 15:45 03/01/18 15:45 Laboratory Results - last 24 hr 03/01/18 03/01/18 03/01/18 15:40 15:45 15:45 WBC 17.8 H RBC 4.93 Hgb 13.9 Hct 40.0 MCV 81.2 MCH 28.2 MCHC 34.8 RDW 14.4 Plt Count 276 MPV 8.1 Neut % (Auto) 84.6 H Lymph % (Auto) 8.9 L [place] % (Auto) 6.2 Eos % (Auto) 0.2 Baso % (Auto) 0.1 Neut # (Auto) 15.1 H Lymph # (Auto) 1.6 [place] # (Auto) 1.1 H Eos # (Auto) 0.0 Baso # (Auto) 0.0 WBC Differential . Differential Comment Auto diff final Sodium 141 Potassium 3.8 Chloride 102 Carbon Dioxide 29.7 Anion Gap 9 BUN 15 Creatinine 0.96 Estimated GFR 61 L POC Glucose Random Glucose 149 H Calcium 8.9 Total Bilirubin 0.6 AST 22 ALT 39 Alkaline Phosphatase 85 Total Protein 8.1 Albumin 3.9 Lipase 145 Urine Color Yellow Urine Clarity Cloudy H Urine pH 7.0 Ur Specific [place] 1.020 Urine Protein Negative Urine Glucose (UA) Negative Urine Ketones Negative Urine Occult Blood Negative Urine Nitrate Negative Urine Bilirubin Negative Urine Urobilinogen 2.0 H Ur Leukocyte Esterase Negative Ur Squamous Epith Cells 7 Amorphous Sediment Rare H Micro UA Comment Culture not ind Ur Microscopic Review Not Reportable Urine Culture Comments Culture not ind 03/02/18 07:58 WBC RBC Hgb Hct MCV MCH MCHC RDW Plt Count MPV Neut % (Auto) Lymph % (Auto) [place] % (Auto) Eos % (Auto) Baso % (Auto) Neut # (Auto) Lymph # (Auto) [place] # (Auto) Eos # (Auto) Baso # (Auto) WBC Differential Differential Comment Sodium Potassium Chloride Carbon Dioxide Anion Gap BUN Creatinine Estimated GFR POC Glucose 166 H Random Glucose Calcium Total Bilirubin AST ALT Alkaline Phosphatase Total Protein Albumin Lipase Urine Color Urine Clarity Urine pH Ur Specific [place] Urine Protein Urine Glucose (UA) Urine Ketones Urine Occult Blood Urine Nitrate Urine Bilirubin Urine Urobilinogen Ur Leukocyte Esterase Ur Squamous Epith Cells Amorphous Sediment Micro UA Comment Ur Microscopic Review Urine Culture Comments - Imaging Imaging: ITS Impressions Abdomen/Pelvis CT 03/01/18 15:29 CONCLUSION: 1. Tubular structure extending off the cecum measuring up to 1.2 cm in diameter with mild apparent adjacent inflammatory change. This could represent early appendicitis. 2. Anterior abdominal wall hernias the upper hernia contains omental fat and small amount of fluid density. Assessment and Plan - Assessment (1) Acute appendicitis Code(s): K35.80 - Unspecified acute appendicitis Status: Acute - Plan POD 1 lap appy. Stable. D/c home. Reg diet. Rx for toradol. F/u in two weeks. Activity- ok to shower.
[2018-03-02] MEDS ORDERED: Pantoprazole Sodium 20 MG DR Tablet PO ONE (12:45)
--- NOTE | 2018-03-02 12:51 | ECG ---
Date Performed: 03/01/2018 Time Performed: 13:06:40 PTAGE: 52 years EKG: Sinus rhythm NORMAL ECG Since PREVIOUS TRACING , no significant change noted PREVIOUS TRACIN04/21/2014 07.37 DOCTOR: Jonathan Moody Interpretating Date/Time 03/02/2018 12:50:06
[2018-03-02] MEDS ORDERED: Nystatin Liq 500,000 UNIT/5 ML UDC SWISH-SPIT SCH (13:00)
== END 2018-03-02 14:30 | disposition home or self-care (01) ==
LOC: NEDA 12:54 → NEPE 12:54 → NEPFCDU 18:30 → N06 03-02 02:34
PROVIDERS: ADMIT Surgery; ATTEND Surgery
PROC: LAPAPPY (ICD-10-PCS; 2018-03-02 02:31)